=== PATIENT | male | born 1985 | race Caucasian/White ===

== ENCOUNTER 2021-11-17 16:55 | Inpatient (IN) | payer BC ==
[~2021-11-17] VITALS: Ht 180.3 cm; Wt 98.6 kg
[2021-11-17 20:00] VITALS: BP 140/87; PULSE 76; TEMP 98.3
[2021-11-17 20:45] LABS: CREATININE, serum 1.34 mg/dL (0.72-1.25); POTASSIUM 4.2 mmol/L (3.5-4.5)
[2021-11-18] VITALS (7 sets, daily range): BP systolic 108–130; BP diastolic 59–79; PULSE 57–90; TEMP 98–99
[2021-11-18 00:48] LABS: COLLECTION METHOD CLEAN CATCH
[2021-11-18 00:53] LABS: MUCOUS Present (NOT PRESENT); PH 6 (5-8); SQUAMOUS EPITHELIAL None Seen /hpf (0-10); URINE APPEARANCE Clear (CLEAR/HAZY); URINE BACTERIA None Seen /hpf (NONE SEEN); URINE BILIRUBIN Negative (NEGATIVE); URINE BLOOD Negative (NEGATIVE); URINE COLOR Yellow (YELLOW); URINE GLUCOSE Negative (NEGATIVE); URINE KETONE Negative (NEGATIVE); URINE LEUKOCYTE ESTERASE Negative (NEGATIVE); URINE NITRATE Negative (NEGATIVE); URINE PROTEIN(semi-quant) Negative (NEGATIVE); URINE RBC 0-2 /hpf (0-2); URINE UROBILINOGEN Negative (NEGATIVE)
--- NOTE | 2021-11-18 00:57 | NUR ---
PT REPORTS NOT FEELING WELL LAST NIGHT MADE A APPT AND WAS FOUND TO HAVE BILATERAL PE.SHARP PAIN TO LEFT RIB/CHEST AREA BARB W DEEP BREATHING OR MOVEMENT. DID HAVE RECENT VASECTOMY AND FAMILY COVID POS A FEW MNTHS AGO. IV FLUIDS STARTED. PAIN MEDS ORDERED. HX AND ASSESS. POC DISCUSSED. ROOM ORIENTATION. VISITING HOURS DISCUSSED.
--- NOTE | 2021-11-18 05:28 | NUR ---
RESTED THROUGH THE NIGHT WITHOUT INCIDENT. NEEDS ARE MET.
[2021-11-18 06:34] LABS: BASO # 0.1 K/mm3 (0.0-0.2); BASO % 0.6 % (0.0-2.0); EOS # 0.3 K/mm3 (0.0-0.7); GRAN % 63.6 % (42.2-75.2); HEMATOCRIT 40.9 % (42.0-52.0); HEMOGLOBIN 13.6 g/dl (13.5-18.0); LYMPH # 2.3 K/mm3 (1.2-3.4); LYMPH % 20.8 % (20.0-51.0); MEAN CELL VOLUME 87 fl (80.0-100.0); MEAN CORPUSCULAR HEMOGLOBIN 29 pg (27-31); MEAN CORPUSCULAR HGB CONC 33 g/dl (33.0-37.0); MEAN PLATELET VOLUME 8.9 fl (7.4-10.4); MONO # 1.3 K/mm3 (0.1-0.6); MONO % 11.5 % (1.7-9.3); PLATELET COUNT 257 K/mm3 (130-400)
[2021-11-18 06:47] LABS: CALCIUM 8.6 mg/dL (8.4-10.2); CREATININE, serum 1.34 mg/dL (0.72-1.25); POTASSIUM 4.2 mmol/L (3.5-4.5)
--- NOTE | 2021-11-18 08:53 | NUR ---
Assessment completed, alert/oriented, vital signs stable, reporting severe left lower/ mid back pain with deep breathing, we have been ging oxycodone without any relief /I have notified hospitalist and got order for IV morphine/ 2m IV MS given and will reevealuate, lungs are CTA, heart RRR/distal pulses are palapble, o2 sats WNL on room air, Pulm consutled and will notify , patient denies other needs at this time, will contineu to monitor
--- NOTE | 2021-11-18 09:42 | NUR ---
SHAN met with the patient and his , Angelica (ph#[phone]), to discuss discharge plan. The patient lives in [place] with his and their four children. He reports independence with ADLs and does not have any DME. The patient's PCP is Dr. Celso Mcbride and he receives his medications from [facility]. The patient does not have a DPOA-HC in EMR, but his states that her father is a verification engineer and she believes they both completed one. The patient plans on returning home with his family upon discharge. No additional needs at this time. *Discharge plan: home with family*
--- NOTE | 2021-11-18 09:57 | NUR ---
Initial visit; Patient and his appeared glad Boat Loader came in to visit for awhile. Nader told Boat Loader how bad he felt. Boat Loader expressed how glad she is that he is here with us and attempted to ease his stress a little and got him to smile. Boat Loader will keep Nader in her prayers and check on him again. Boat Loader assured Nader that he is in good hands.
--- NOTE | 2021-11-18 20:00 | NUR ---
Patient is resting in bed with family aside. Alert and oriented x 4 VSS, Denies pain at themoment. He knows to ho use IS raising to 2000 and it makes him cough. Assessment completed, meds provided. No other needs at this time. Call light within reach.
[2021-11-19 04:05] VITALS: BP 125/66; PULSE 66; TEMP 98.6
[2021-11-19 06:24] LABS: BASO # 0.1 K/mm3 (0.0-0.2); BASO % 0.5 % (0.0-2.0); EOS # 0.3 K/mm3 (0.0-0.7); EOS % 2.8 % (0.0-4.0); GRAN # 5.8 K/mm3 (1.4-6.5); GRAN % 60.2 % (42.2-75.2); HEMATOCRIT 39.6 % (42.0-52.0); HEMOGLOBIN 13.8 g/dl (13.5-18.0); LYMPH # 2.6 K/mm3 (1.2-3.4); LYMPH % 26.9 % (20.0-51.0); MEAN CELL VOLUME 85 fl (80.0-100.0); MEAN CORPUSCULAR HEMOGLOBIN 30 pg (27-31); MEAN CORPUSCULAR HGB CONC 35 g/dl (33.0-37.0); MEAN PLATELET VOLUME 9.1 fl (7.4-10.4); MONO # 0.9 K/mm3 (0.1-0.6); MONO % 9.2 % (1.7-9.3); PLATELET COUNT 267 K/mm3 (130-400); RED BLOOD COUNT 4.67 M/mm3 (4.20-5.60)
--- NOTE | 2021-11-19 06:39 | NUR ---
Patient required pain medication once. No other issues along the night. Report will be given to day RN.
[2021-11-19 06:53] LABS: CALCIUM 8.5 mg/dL (8.4-10.2); CREATININE, serum 1.25 mg/dL (0.72-1.25); POTASSIUM 3.9 mmol/L (3.5-4.5)
[2021-11-19 08:00] VITALS: BP 128/76; PULSE 66; TEMP 98.1
--- NOTE | 2021-11-19 09:26 | NUR ---
PT SITTING UP IN RECLINER. MORNING MEDICATIONS GIVEN. SHIFT ASSESSMENT COMPLETED. PT DENIES ANY PAIN OR NEEDS AT THIS TIME. STATES HE OCCASIONALLY GETS A STABBING PAIN TO HIS L SIDE. PT EAGER FOR D/C. WILL CONTINUE TO MONITOR.
[2021-11-19] MEDS ORDERED: ROXICODONE 55 MG/TAB PO (09:33)
[2021-11-19] MEDS ORDERED: ELIQUIS 5MG PO (09:38)
--- NOTE | 2021-11-19 10:05 | NUR ---
Follow-up visit; Patient sitting up and waved at Benefits Representative. Patient appeared much better though Benefits Representative couldn't get in his room due to Rounding but let patient know she is happy to see him doing well.
--- NOTE | 2021-11-19 10:50 | NUR ---
TELE D/C. IV D/C. DISCHARGE ORDERS GIVEN, AT BEDSIDE, ALL QUESTIONS ANSWERED. WILL ESCORT PT DOWN TO VEHICLE WITH BELONGINGS. WILL D/C FROM SYSTEM.
== END 2021-11-19 11:09 | disposition home or self-care (01) | DRG 176 ==
LOC: COL.ER 16:55 → MEDICAL 19:59
PROVIDERS: Physician Assistant; Student in an Organized Health Care Education/Training Program; ADMIT Student in an Organized Health Care Education/Training Program
DX: I26.99 Other pulmonary embolism without acute cor pulmonale (principal); D68.51 Activated protein C resistance; N17.9 Acute kidney failure, unspecified; J90 Pleural effusion, not elsewhere classified; J98.11 Atelectasis; Z20.822 Contact with and (suspected) exposure to COVID-19
CPT/HCPCS: 99223-AI; 99232-AI; 99239; A9284; J1650; J2270; J7030

== ENCOUNTER → 2021-11-17 | Outpatient (REF) ==
[~2021-11-17] MED LIST: ELIQUIS 5MG PO; ROXICODONE 55 MG/TAB PO
== END ==
LOC: ZLAB.WCH 14:20
DX: Z01.89 Encounter for other specified special examinations (principal)

== ENCOUNTER 2022-02-03 09:44 | Day surgery (SDC) | payer BC ==
[~2022-02-03] VITALS: Ht 180.3 cm; Wt 97.0 kg
[2022-02-03] MEDS ORDERED: ELIQUIS 5MG PO (09:59)
[2022-02-03] MEDS ORDERED: ALIGN PO (10:00)
[2022-02-03] MEDS ORDERED: KRILL OIL 5001 EACH PO (10:00)
[2022-02-03 10:11] VITALS: BP 146/86; PULSE 61; TEMP 97.5
[2022-02-03 11:15] VITALS: BP 126/87; PULSE 62; TEMP 97.4
--- NOTE | 2022-02-03 11:15 | NUR ---
PATIENT RETURNS TO ROOM 4 VIA CART. VITAL SIGNS WNL. PATIENT WOULD LIKE TO REST AND DECLINES FOOD/DRINK AT THIS TIME. WILL CONTINUE TO MONITOR.
[2022-02-03 11:30] VITALS: BP 123/79; PULSE 55
--- NOTE | 2022-02-03 11:30 | NUR ---
PATIENT IS DOING WELL. VITAL SIGNS WNL. IV REMOVED. WAITING FOR DOCTOR TO SPEAK WITH PATIENT. WILL CONTINUE TO MONITOR.
[2022-02-03 11:45] VITALS: BP 123/82; PULSE 55
--- NOTE | 2022-02-03 11:45 | NUR ---
PATIENT IS READY FOR DISCHARGE. DOCTOR SPOKE WITH HIM ABOUT RESULTS. LAST SET OF VITALS WNL. DISCHARGE INSTRUCTIONS REVIEWED. WILL D/C WHEN HE IS DONE SPEAKING WITH DOCTOR.
== END 2022-02-03 11:51 | disposition home or self-care (01) ==
LOC: SDCO 09:44
DX: Z12.11 Encounter for screening for malignant neoplasm of colon (principal); D12.3 Benign neoplasm of transverse colon; K63.5 Polyp of colon; Z80.0 Family history of malignant neoplasm of digestive organs; K57.30 Diverticulosis of large intestine without perforation or abscess without bleeding
CPT/HCPCS: J2704; J3010; J7120